=== PATIENT | male | born 2000 | race Hispanic/Latino ===

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

== ENCOUNTER 2025-02-18 20:06 | Emergency (ER) | payer MEDICAID, OTHER ==
[~2025-02-18] VITALS: Ht 172.7 cm; Wt 79.4 kg
[2025-02-18 20:10] VITALS: BP 104/56; PULSE 66; RESP 18; TEMP 98.1; O2SAT 99
--- NOTE | 2025-02-18 20:16 | NUR ---
TAKEN TO CT SCAN
--- NOTE | 2025-02-18 20:31 | NUR ---
PATIENT BACK FROM CT WITH ED RN
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
[2025-02-18 20:54] LABS: IMMATURE GRANULOCYTE ABSOLUTE 0.03 K/uL (0-1); NUCLEATED RED BLOOD CELLS 0.0 % (0.0-0.19); PLATELET COUNT (AUTO) 229 K/uL (130-400); RED BLOOD CELL COUNT(AUTO) 4.77 MIL/uL (4.50-6.20); RED CELL DISTRIBUTION WIDTH 12.1 % (11.0-15.5); WHITE BLOOD COUNT (AUTO) 5.4 K/uL (4.8-10.8)
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
[2025-02-18 21:05] LABS: CREATININE 0.7 mg/dL (0.5-1.3); GLOMERULAR FILTR. RATE CALC 133.0 mL/min (>90); GLUCOSE,RANDOM 94.0 mg/dL (70-105); SODIUM SERUM 144.0 mmol/L (136-145); UREA NITROGEN, BLOOD 16.0 mg/dL (7-18)
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
[2025-02-18 21:55] LABS: APPEARANCE,URINE CLEAR (CLEAR); GLUCOSE, URINE (UA) NEGATIVE (NEGATIVE); LEUKOCYTE ESTERASE ,URINE NEGATIVE Leu/uL (NEGATIVE); NITRATE,URINE NEGATIVE (NEGATIVE); OCCULT BLOOD,URINE NEGATIVE (NEGATIVE)
[2025-02-18 21:58] LABS: ADD UA MICROSCOPIC NO
[2025-02-18 22:15] LABS: AMPHET/METH SCREEN,URINE NEGATIVE (NEGATIVE); BARBITURATE SCREEN, URINE NEGATIVE (NEGATIVE); CANNABINOID SCREEN,URINE POSITIVE (NEGATIVE); COCAINE SCREEN,URINE NEGATIVE (NEGATIVE)
[2025-02-18] MEDS ORDERED: KETO10 PO (22:23)
== END 2025-02-18 22:30 | disposition home or self-care (01) ==
LOC: EDH 20:06
DX: S90.32XA Contusion of left foot, initial encounter (principal); R51.9 Headache, unspecified; R20.0 Anesthesia of skin; Z79.899 Other long term (current) drug therapy; V87.8XXA Person injured in other specified noncollision transport accidents involving motor vehicle (traffic), initial encounter; Y93.55 Activity, bike riding; Y92.89 Other specified places as the place of occurrence of the external cause; Y99.8 Other external cause status
CPT/HCPCS: 99285; 70450; 71045; 80048; 80305; 85025; 36415; 73630; 73030; 72125; 96372; 81003; J1885